=== PATIENT | female | born 1975 | race African-American/Black ===

== ENCOUNTER → 2017-07-29 | Outpatient (CLI) | payer BC ==
[~2017-07-29] MED LIST: COUMADIN,JANTO7.5 MG PO
== END | disposition home or self-care (01) ==
LOC: EKG 13:00
DX: I05.1 Rheumatic mitral insufficiency (principal); I07.1 Rheumatic tricuspid insufficiency; I27.2 Other secondary pulmonary hypertension; R94.31 Abnormal electrocardiogram [ECG] [EKG]
CPT/HCPCS: 93306

== ENCOUNTER → 2017-08-11 | Outpatient (CLI) | payer BC | END | disposition home or self-care (01) | LOC: NUC 09:24 | DX: I25.89 Other forms of chronic ischemic heart disease (principal); R94.39 Abnormal result of other cardiovascular function study; R94.31 Abnormal electrocardiogram [ECG] [EKG] | CPT/HCPCS: 78452; 78999; 93017; A9500 ==

== ENCOUNTER 2017-08-19 12:31 | Day surgery (SDC) | payer BC ==
[~2017-08-19] VITALS: Ht 175.3 cm; Wt 158.8 kg
[~2017-08-19 12:31] MED LIST changes: +ASPIR-LOW81 MG PO; +LORATADINE10 M2 PO; +XANAX0.5 MG PO
== END 2017-08-19 20:21 | disposition home or self-care (01) ==
LOC: CATH 12:31
DX: R07.9 Chest pain, unspecified (principal); R07.2 Precordial pain; F41.9 Anxiety disorder, unspecified; E66.01 Morbid (severe) obesity due to excess calories; Z68.43 Body mass index [BMI] 50.0-59.9, adult; R73.03 Prediabetes; R91.1 Solitary pulmonary nodule; Z86.718 Personal history of other venous thrombosis and embolism; Z82.49 Family history of ischemic heart disease and other diseases of the circulatory system
CPT/HCPCS: C1769; C1887; J1644; J2250; J3010